=== PATIENT | female | born 1945 | race Two or more races ===

== ENCOUNTER → 2017-02-06 | Outpatient (REF) | payer MEDICARE ==
[2017-02-06 14:38] LABS: ANION GAP 7 MEQ/L (8-16); BLOOD UREA NITROGEN 10 MG/DL (7-18); CALCIUM LEVEL 8.6 MG/DL (8.8-10.2); CARBON DIOXIDE LEVEL 30 MEQ/L (21-32); CHLORIDE LEVEL 107 MEQ/L (98-107); CREATININE FOR GFR 0.78 MG/DL (0.55-1.02); GLOMERULAR FILTRATION RATE > 60.0 (>45); GLUCOSE, FASTING 75 MG/DL (80-110); SODIUM LEVEL 144 MEQ/L (136-145)
[2017-02-06 14:49] LABS: BASO % 0.5 % (0.0-1.0); EOS # 0.1 K/mm3 (0.0-0.50); EOS % 1.8 % (0.0-3.0); LARGE UNSTAINED CELL # 0.1 K/mm3 (0.0-0.4); LARGE UNSTAINED CELL % 1.4 % (0.0-4.0); LYMPH # 2.1 K/mm3 (1.5-4.5); LYMPH % 29.2 % (24.0-44.0); MEAN CORPUSCULAR HEMOGLOBIN 31.5 pg (27.0-33.0); MEAN CORPUSCULAR HGB CONC 33.3 g/dl (32.0-36.5); MEAN CORPUSCULAR VOLUME 94.7 fl (80.0-96.0); MONO # 0.4 K/mm3 (0.0-0.8); MONO % 5.5 % (0.0-5.0); NEUTROPHILS # 4.4 K/mm3 (1.8-7.7); NEUTROPHILS % 61.7 % (36.0-66.0); PLATELET COUNT, AUTOMATED 207 k/mm3 (150-450); RED CELL DISTRIBUTION WIDTH 13.4 % (11.5-14.5); WHITE BLOOD COUNT 7.1 K/mm3 (4.0-10.0)
== END ==
LOC: M SFHCPLAZ 11:28
PROVIDERS: ATTEND Internal Medicine Infectious Disease
DX: A04.7 Enterocolitis due to Clostridium difficile (principal)
CPT/HCPCS: 80048; 85025; G0463

== ENCOUNTER → 2017-03-19 | Outpatient (CLI) | payer MEDICARE ==
[~2017-03-19] VITALS: Ht 170.2 cm; Wt 52.2 kg
[~2017-03-19] MED LIST: FECAL MICROBIOTA PREPARATION 250 ML BTL (J3590) XX ONE; LIDOCAINE 2% INJ 100 MG/5 ML SDV (FOR ANES.) As Ordered ONE; NS 1,000 ML IV ONE; PROPOFOL 200 MG/20 ML VIAL As Ordered ONE; SIMETHICONE 40MG/0.6ML DROPS 30ML As Ordered ONE
--- NOTE | 2017-03-19 15:26 | ROOR ---
Patient Name: Shayna Rivera Procedure Date: 03/19/2017 3:05 PM Date of : 1945 Age: 71 Room: [facility] Gender: Female Note Status: Finalized Procedure: Total Colonoscopy to Cecum + Fecal Microbiota Transplant Indications: Fecal transplant for treatment of Clostridium difficile diarrhea Providers: Jatinder Dumont MD Referring MD: Salina HARRIS MD Requesting Provider: Medicines: Monitored Anesthesia Care Complications: No immediate complications. Procedure: Pre-Anesthesia Assessment: - The heart rate, respiratory rate, oxygen saturations, blood pressure, adequacy of pulmonary ventilation, and response to care were monitored throughout the procedure. The Colonoscope was introduced through the anus and advanced to the cecum, identified by appendiceal orifice and ileocecal valve. The colonoscopy was performed without difficulty. The patient tolerated the procedure well. The quality of the bowel preparation was good. Findings: The perianal and digital rectal examinations were normal. Non-bleeding internal hemorrhoids were found during retroflexion. The hemorrhoids were small and Grade I (internal hemorrhoids that do not prolapse). Inflammation characterized by erythema, granularity, mucus and aphthous ulcerations was found in a continuous and circumferential pattern from the anus to the cecum. No sites were spared. This was moderate in severity. Fecal Microbiota Transplant (Bacteriotherapy): Donor stool was prepared using saline as per protocol. Approximately 250 mL of the emulsified donor stool was instilled in the cecum. A detailed colonoscopic exam could not be performed upon scope withdrawal secondary to limited visibility from the instilled stool. The exam was otherwise without abnormality. Impression: - Non-bleeding internal hemorrhoids. - Inflammatory bowel disease. Inflammation was found from the anus to the cecum. This was moderate in severity. - The examination was otherwise normal. - Fecal Microbiota Transplant (Bacteriotherapy) performed in the cecum. - No specimens collected. - The exam was otherwise normal to the cecum. Recommendation: - Patient has a contact number available for emergencies. The signs and symptoms of potential delayed complications were discussed with the patient. Return to normal activities tomorrow. Written discharge instructions were provided to the patient. - Resume previous diet. - Discharge patient to home. - Continue present medications. - Return to my office in 2 weeks. - The findings and recommendations were discussed with the patient's family. Jatinder Dumont MD Jatinder Dumont MD 03/19/2017 3:25:27 PM This report has been signed electronically. Number of Addenda: 0 Note Initiated On: 03/19/2017 3:05 PM Estimated Blood Loss: Estimated blood loss: none.
[2017-03-19 15:44] VITALS: BP 126/61
== END | disposition home or self-care (01) ==
LOC: M OPP 13:35
PROVIDERS: ATTEND Internal Medicine Gastroenterology
DX: R19.7 Diarrhea, unspecified (principal); A04.7 Enterocolitis due to Clostridium difficile; K64.0 First degree hemorrhoids; K52.3 Indeterminate colitis; K50.80 Crohn's disease of both small and large intestine without complications; Z78.0 Asymptomatic menopausal state; F17.210 Nicotine dependence, cigarettes, uncomplicated

== ENCOUNTER → 2017-04-10 | Outpatient (REF) | payer MEDICARE, OTHER ==
[~2017-04-10] MED LIST changes: +D 50CAP PO; -FECAL MICROBIOTA PREPARATION 250 ML BTL (J3590) XX ONE; +IMOD2TAB16 PO; -LIDOCAINE 2% INJ 100 MG/5 ML SDV (FOR ANES.) As Ordered ONE; -NS 1,000 ML IV ONE; +PROBCAP4 PO; -PROPOFOL 200 MG/20 ML VIAL As Ordered ONE; -SIMETHICONE 40MG/0.6ML DROPS 30ML As Ordered ONE; +SULF50TA PO
== END ==
LOC: M LAB REF 09:40 → MERGE 09:40
PROVIDERS: ATTEND Internal Medicine Gastroenterology
DX: K50.80 Crohn's disease of both small and large intestine without complications (principal); A04.7 Enterocolitis due to Clostridium difficile

== ENCOUNTER 2017-06-11 13:35 | Outpatient (CLI) | payer MEDICARE ==
[~2017-06-11] VITALS: Ht 167.6 cm; Wt 49.9 kg
[2017-06-11] MEDS ORDERED: PROPOFOL 200 MG/20 ML VIAL As Ordered ONE (13:40)
[2017-06-11] MEDS ORDERED: LIDOCAINE 2% INJ 100 MG/5 ML SDV (FOR ANES.) As Ordered ONE (13:40)
[2017-06-11] MEDS ORDERED: NS 1,000 ML IV ONE (14:00)
[2017-06-11] MEDS ORDERED: FECAL MICROBIOTA PREPARATION 250 ML BTL (J3590) XX ONE (14:00)
--- NOTE | 2017-06-11 15:11 | ROOR ---
Patient Name: Shayna Rivera Procedure Date: 06/11/2017 2:46 PM Date of : 1945 Age: 71 Room: [facility] Gender: Female Note Status: Finalized Procedure: Total Colonoscopy to Cecum + Fecal Transplant Indications: Fecal transplant for treatment of Clostridium difficile diarrhea Providers: Jatinder Dumont MD Referring MD: Salina HARRIS MD Requesting Provider: Medicines: Monitored Anesthesia Care Complications: No immediate complications. Procedure: Pre-Anesthesia Assessment: - The heart rate, respiratory rate, oxygen saturations, blood pressure, adequacy of pulmonary ventilation, and response to care were monitored throughout the procedure. The Colonoscope was introduced through the anus and advanced to the cecum, identified by appendiceal orifice and ileocecal valve. The colonoscopy was performed without difficulty. The patient tolerated the procedure well. The quality of the bowel preparation was excellent. Findings: The perianal and digital rectal examinations were normal. Multiple small and large-mouthed diverticula were found in the recto-sigmoid colon, sigmoid colon and descending colon. No additional abnormalities were found on retroflexion. Fecal Microbiota Transplant (Bacteriotherapy): Donor stool was prepared using saline as per protocol. Approximately 250 mL of the emulsified donor stool was instilled in the cecum. A detailed colonoscopic exam could not be performed upon scope withdrawal secondary to limited visibility from the instilled stool. The exam was otherwise without abnormality. Impression: - Diverticulosis in the recto-sigmoid colon, in the sigmoid colon and in the descending colon. - The examination was otherwise normal. - Fecal Microbiota Transplant (Bacteriotherapy) performed in the cecum. - No specimens collected. - The exam was otherwise normal to the cecum. Recommendation: - Patient has a contact number available for emergencies. The signs and symptoms of potential delayed complications were discussed with the patient. Return to normal activities tomorrow. Written discharge instructions were provided to the patient. - High fiber diet. - Discharge patient to home. - Continue present medications. - Repeat colonoscopy PRN. - Return to referring physician. - The findings and recommendations were discussed with the patient's family. Jatinder Dumont MD Jatinder Dumont MD 06/11/2017 3:11:17 PM This report has been signed electronically. Number of Addenda: 0 Note Initiated On: 06/11/2017 2:46 PM Estimated Blood Loss: Estimated blood loss: none.
[2017-06-11 15:35] VITALS: BP 92/44
== END 2017-06-11 15:55 | disposition home or self-care (01) ==
LOC: M OPP 13:35
PROVIDERS: ATTEND Internal Medicine Gastroenterology
DX: A04.7 Enterocolitis due to Clostridium difficile (principal); K57.30 Diverticulosis of large intestine without perforation or abscess without bleeding; K50.80 Crohn's disease of both small and large intestine without complications; R63.4 Abnormal weight loss; Z78.0 Asymptomatic menopausal state; F17.210 Nicotine dependence, cigarettes, uncomplicated; Z79.899 Other long term (current) drug therapy

== ENCOUNTER → 2018-07-02 | Outpatient (REF) | payer MEDICARE | LOC: M LAB REF 12:26 | DX: R19.7 Diarrhea, unspecified (principal) | CPT/HCPCS: 87507 ==

== ENCOUNTER → 2018-12-23 | Outpatient (REF) | payer MEDICARE | LOC: M LAB REF 19:14 | PROVIDERS: ATTEND Internal Medicine Gastroenterology | DX: R19.7 Diarrhea, unspecified (principal) ==

== ENCOUNTER → 2019-02-15 | Outpatient (CLI) | payer MEDICARE ==
[~2019-02-15] MED LIST changes: +E-Z-GAS II EFFERVESCENT PACKET (SODIUM BICARB./CITRIC ACID/SIMETHICONE) As Ordered ONE; +E-Z-HD 98% w/w 340GM SUSP BTL As Ordered ONE; +E-Z-PAQUE 96% w/w SUSP 176GM BTL As Ordered ONE
--- NOTE | 2019-02-16 10:17 | REP ---
Examination Requested: Upper G.I. Series With SBFT Reason For Exam: Diarrhea Upper GI Air Contrast and SBFT The procedure was performed by LEAH Villarreal, under the direct supervision of Dr. Asif. The images were reviewed with Dr. Asif. The ug designer film shows normal organomegaly or pathological masses. The intestinal gas pattern appears normal. Liquid barium and gas producing crystals were given tissue in the erect position as well as liquid barium in the prone position in order to perform a double contrast upper GI examination. The oral and pharyngeal stages of deglutition were unremarkable. Esophageal transport is efficient and there is no esophagitis, stricture, or mucosal ring noted. There is no hiatal hernia noted. A small amount of gastroesophageal reflux noted. The stomach kline are normally outlined. The rugal folds are smooth and regular. There is no gastritis, neoplasm, ulcer disease noted. The duodenal kline are normally outlined. The mucosal folds are smooth and regular. There are two large duodenal diverticula noted in the descending and transverse duodenum. There is no duodenitis, peptic ulcer disease, or neoplasm noted. The visualized portion of the proximal small bowel appears normal in course and caliber. The barium column was followed through to the small bowel to the level of the terminal ileum. Small bowel transit time is approximately 15 minutes. During fluoroscopy. Gentle palpation shows all loops freely mobile and pliable. There is a long segment of the distal ileum to the terminal ileum that has mucosal thickening and irregularity most consistent with Crohn disease. The appendix is visualized and appears normal. Impression; 1. Long segment of distal ileum to the terminal ileum displaying mucosal thickening and irregularity that is most consistent with Crohn disease. 2. Two large duodenal diverticula. 3. Gastroesophageal reflux 2.6 minutes of fluoroscopy time was utilized for this procedure. Reviewed by LEAH Cantrell 02/15/2019 05:26 P Electronically Signed by Brian Asif MD 02/16/2019 10:08 A
== END ==
LOC: M RAD 09:21
PROVIDERS: ATTEND Internal Medicine Gastroenterology
DX: K57.10 Diverticulosis of small intestine without perforation or abscess without bleeding (principal); K21.9 Gastro-esophageal reflux disease without esophagitis

== ENCOUNTER 2019-03-15 11:08 | Outpatient (CLI) | payer MEDICARE ==
[~2019-03-15] VITALS: Ht 170.2 cm; Wt 54.4 kg
[~2019-03-15 11:08] MED LIST changes: -E-Z-GAS II EFFERVESCENT PACKET (SODIUM BICARB./CITRIC ACID/SIMETHICONE) As Ordered ONE; -E-Z-HD 98% w/w 340GM SUSP BTL As Ordered ONE; -E-Z-PAQUE 96% w/w SUSP 176GM BTL As Ordered ONE
[2019-03-15 11:15] VITALS: BP 146/65
[2019-03-15] MEDS ORDERED: VEDOLIZUMAB 300 MG in NS 250 ML IV ONE (11:30)
[2019-03-15] MEDS ORDERED: diphenhydrAMINE 25 MG CAP PO ONE (11:30)
[2019-03-15] MEDS ORDERED: ACETAMINOPHEN TAB 650MG DOSE (2X325MG) PO ONE (11:30)
[2019-03-15 12:30] VITALS: BP 101/53
[2019-03-15 13:00] VITALS: BP 104/54
[2019-03-15 13:30] VITALS: BP 105/53
[2019-03-15] MEDS ORDERED: ENTY1INJ IV (13:31)
== END 2019-03-15 13:30 | disposition home or self-care (01) ==
LOC: M INFU 11:08
PROVIDERS: ATTEND Internal Medicine Gastroenterology
DX: K50.90 Crohn's disease, unspecified, without complications (principal)
CPT/HCPCS: 96365; J3380

== ENCOUNTER 2019-03-29 15:31 | Outpatient (CLI) | payer MEDICARE ==
[~2019-03-29] VITALS: Ht 170.2 cm; Wt 54.4 kg
[2019-03-29 14:46] VITALS: BP 161/65
[~2019-03-29 15:31] MED LIST changes: +ACETAMINOPHEN TAB 650MG DOSE (2X325MG) PO ONE; +ENTY1INJ IV; +VEDOLIZUMAB 300 MG in NS 250 ML IV ONE; +diphenhydrAMINE 25 MG CAP PO ONE
[2019-03-29 15:35] VITALS: BP_SYST 125; BP_SYST 131; BP_DIAS 60; BP_DIAS 69
[2019-03-29 17:15] VITALS: BP 118/61
[2019-03-29 17:50] VITALS: BP 156/71
== END 2019-03-29 17:55 | disposition home or self-care (01) ==
LOC: M INFU 15:31
PROVIDERS: ATTEND Internal Medicine Gastroenterology
DX: K50.90 Crohn's disease, unspecified, without complications (principal)
CPT/HCPCS: 96365; J3380

== ENCOUNTER 2019-03-29 18:02 | Emergency (ER) | payer MEDICARE ==
[~2019-03-29] VITALS: Ht 167.6 cm; Wt 52.3 kg
[~2019-03-29 18:02] MED LIST changes: -ACETAMINOPHEN TAB 650MG DOSE (2X325MG) PO ONE; -VEDOLIZUMAB 300 MG in NS 250 ML IV ONE; -diphenhydrAMINE 25 MG CAP PO ONE
[2019-03-29] MEDS ORDERED: methylPREDNISolone INJ 125 MG/2 ML VIAL (J2930) IV ONE (19:30)
[2019-03-29 19:33] VITALS: BP 128/66
== END 2019-03-29 19:40 | disposition home or self-care (01) ==
LOC: M ED 18:02
DX: R22.0 Localized swelling, mass and lump, head (principal); T50.995A Adverse effect of other drugs, medicaments and biological substances, initial encounter; X58.XXXA Exposure to other specified factors, initial encounter; Y92.89 Other specified places as the place of occurrence of the external cause; K50.90 Crohn's disease, unspecified, without complications; Z86.19 Personal history of other infectious and parasitic diseases
CPT/HCPCS: 96374; 99284; J2930

== ENCOUNTER → 2019-05-17 | Outpatient (CLI) | payer MEDICARE ==
[~2019-05-17] MED LIST changes: +GASTROGRAFIN SOLUTION 30ML (Q9963) As Ordered ONE; +ISOVUE-370 76% 100ML VIAL (Q9967) As Ordered ONE
--- NOTE | 2019-05-18 18:46 | REP ---
REASON FOR EXAM: Crohn's disease. COMPARISON: 12/19/2016, the only prior. CONTRAST: 100 mL [id number]-[id number]. The lung bases are unchanged from the prior exam. There is cylindrical bronchiectasis. There is linear fibrotic change in the right middle lobe status quo. There are no pleural or pericardial effusions. The precontrast enhanced portion of the examination shows hepatic and splenic densities to be within normal limits. Minimal splenic and hepatic granulomas changes are noted. There is no nephrolithiasis or cholelithiasis. Contrast enhanced portion of the examination shows no change in the appearance of the liver. A few tiny hepatic cysts are seen status quo. There is no change in the gallbladder. There is a phrygian cap status quo. The spleen and pancreas are within normal limits. There is a stable 1 cm sized nodule in the left adrenal gland. The precontrast enhanced images show consistently low Hounsfield unit readings indicating benignity. The right adrenal gland is also unchanged and again seen to be within normal limits. There are bilateral renal cortical cysts all of which are essentially unchanged. There are no enhancing renal lesions. The abdominal aorta and paraaortic regions are within normal limits. There is no mass or adenopathy. There is thickening of the kline of the terminal ileum. The appearance of this is essentially unchanged to slightly increased. In addition, high in the pelvis on the right there are multiple round and slightly enlarged mesenteric lymph nodes, some of which are unchanged from the prior exam and others of which have developed since the prior exam. There is no evidence of free pelvic fluid or air. There is no pelvic sidewall adenopathy. Bone window technique throughout the exam again shows spinal and sacroiliac joint degenerative changes. IMPRESSION: 1. Abnormal terminal ileum consistent with Crohn's disease as described above. There is no evidence of intestinal obstruction. There is no evidence of free fluid or free air. There is associated mesenteric adenopathy. 2. Benign left adrenal gland nodule. 3. Benign stable Bosniak class 1 bilateral renal cysts. 4. Stable tiny hepatic cysts versus focal fatty deposits. 5. Chronic lung base changes as described above. 6. Other findings as described above. Electronically Signed by Santi Rosa DO 05/19/2019 12:38 P
== END ==
LOC: M RAD 12:36
PROVIDERS: ATTEND Internal Medicine Gastroenterology
DX: K50.80 Crohn's disease of both small and large intestine without complications (principal); N28.1 Cyst of kidney, acquired; R91.8 Other nonspecific abnormal finding of lung field
CPT/HCPCS: 74178; Q9963; Q9967

== ENCOUNTER 2019-12-01 08:44 | Day surgery (SDC) | payer MEDICARE ==
[~2019-12-01] VITALS: Ht 167.6 cm; Wt 51.3 kg
[~2019-12-01 08:44] MED LIST changes: +ALEV220T22 PO; -GASTROGRAFIN SOLUTION 30ML (Q9963) As Ordered ONE; -ISOVUE-370 76% 100ML VIAL (Q9967) As Ordered ONE; +NS 1,000 ML IV ONE; +OMEP-221 PO; +SUCR1ORA PO
[2019-12-01] MEDS ORDERED: LIDOCAINE 2% INJ 100 MG/5 ML SDV (FOR ANES.) As Ordered ONE (09:53)
[2019-12-01] MEDS ORDERED: propofoL 200 MG/20 ML VIAL As Ordered ONE (09:53)
[2019-12-01] MEDS ORDERED: fentaNYL 100 MCG/2 ML INJECTION (J3010) As Ordered ONE (10:18)
[2019-12-01 11:00] VITALS: BP 121/59
--- NOTE | 2019-12-01 15:34 | ROOR ---
Patient Name: Shayna Rivera Procedure Date: 12/01/2019 10:27 AM Date of : 1945 Age: 74 Room: [facility] Gender: Female Note Status: Finalized Procedure: Upper Endoscopy + Biopsies Indications: Epigastric abdominal pain, Abnormal UGI series Providers: Jatinder Dumont MD Referring MD: Pooja BERRY NP Requesting Provider: Medicines: Monitored Anesthesia Care Complications: No immediate complications. Procedure: Pre-Anesthesia Assessment: - The heart rate, respiratory rate, oxygen saturations, blood pressure, adequacy of pulmonary ventilation, and response to care were monitored throughout the procedure. The Endoscope was introduced through the mouth, and advanced to the second part of duodenum. The upper GI endoscopy was accomplished without difficulty. The patient tolerated the procedure well. Findings: The Z-line was regular and was found 40 cm from the incisors. No other significant abnormalities were identified in a careful examination of the stomach. Biopsies were taken with a cold forceps in the gastric antrum for Helicobacter pylori testing. Multiple localized erosions without bleeding were found in the first portion of the duodenum. The exam was otherwise without abnormality. Impression: - Z-line regular, 40 cm from the incisors. - Duodenal erosions without bleeding. - The examination was otherwise normal. - Biopsies were taken with a cold forceps for Helicobacter pylori testing. - The examination was otherwise normal. Recommendation: - Patient has a contact number available for emergencies. The signs and symptoms of potential delayed complications were discussed with the patient. Return to normal activities tomorrow. Written discharge instructions were provided to the patient. - Resume previous diet. - Discharge patient to home. - Continue present medications. - Await pathology results. - Telephone GI clinic for pathology results in 1 week. - Return to referring physician. - The findings and recommendations were discussed with the patient's family. Jatinder Dumont MD Jatinder Dumont MD 12/01/2019 10:45:04 AM Electronically signed by Jatinder Dumont MD Number of Addenda: 0 Note Initiated On: 12/01/2019 10:27 AM Estimated Blood Loss: Estimated blood loss: none.
== END 2019-12-01 11:11 | disposition home or self-care (01) ==
LOC: M OPP 08:44
PROVIDERS: ATTEND Internal Medicine Gastroenterology
DX: K26.9 Duodenal ulcer, unspecified as acute or chronic, without hemorrhage or perforation (principal); R10.13 Epigastric pain; R93.3 Abnormal findings on diagnostic imaging of other parts of digestive tract; K50.80 Crohn's disease of both small and large intestine without complications; N82.3 Fistula of vagina to large intestine; F17.210 Nicotine dependence, cigarettes, uncomplicated; Z87.19 Personal history of other diseases of the digestive system; Z88.8 Allergy status to other drugs, medicaments and biological substances; Z86.19 Personal history of other infectious and parasitic diseases
CPT/HCPCS: 43239; 88305; 88342; J3010